=== PATIENT | female | born 1980 | race Caucasian/White ===

== ENCOUNTER 2021-08-21 20:11 | Emergency (ER) | payer BC, SELFPAY ==
[2021-08-21 20:19] VITALS: BP 190/89; PULSE 89; RESP 18; TEMP 36.7; O2SAT 100; BMI 43.6
--- NOTE | 2021-08-21 20:51 | CRLHL7_ITS ---
For Patients: As a result of the Cures Act, medical imaging exams and procedure reports are released immediately into your electronic medical record. You may view this report before your referring provider. If you have questions, please contact your health care provider. INDICATION: Swelling and pain. TECHNIQUE: Ultrasound venous duplex of lower left extremity. Compression venous exam was performed using meyers-scale, color Doppler, and spectral Doppler analysis. COMPARISON: None. FINDINGS: Sonographic imaging demonstrates the visualized left common femoral, deep femoral, femoral, popliteal, posterior tibial and greater saphenous and the contralateral right common femoral veins to be fully compressible with normal color Doppler blood flow. IMPRESSION: No evidence of a left lower extremity DVT. Dictated by Quirino Clark MD @ 08/21/2021 10:48:35 PM (Electronically Signed)
--- NOTE | 2021-08-21 20:52 | ED.GENADULT ---
HPI - General Adult General Date Seen: 08/21/21 Chief complaint: Lower Extremity Swelling Stated complaint: Leg Pain Time Seen by Provider: 08/21/21 20:44 Source: patient History of Present Illness HPI narrative: Patient is a 41-year-old woman who has been having some problems with migratory pain in her left lower extremity associated with some swelling. She saw her primary doctor today about this problem, likely felt to be musculo skeletal, but with history of recent travel and COVID, they discussed doing a venous Doppler. She says that no one has called her to schedule the Doppler yet. She says her primary doctor told her to come to the ER if she had any changes in her pain. She says the pain was kind of in the lateral part of her knee and a little bit behind her calf, and now it is more in the medial part of her thigh, so she presents to the ER. She has not had chest pain or shortness of breath. No fever. No history of prior DVT. No family history of DVT. She does not smoke. No control pills, she does have a Mirena IUD. Blood pressure noted to be high in clinic today and she was started on hydrochlorothiazide. Related Data Home Medications Medication Instructions Recorded Confirmed lisinopril 10 mg tablet 10 mg PO QDAY 08/21/21 08/21/21 prednisone 20 mg tablet 20 mg PO .PRN tab 08/21/21 08/21/21 Previous Rx's Medication Instructions Recorded hydrochlorothiazide 12.5 mg tablet 12.5 mg PO QAM #30 tab 08/21/21 ketorolac 10 mg tablet 10 mg PO TID 5 Days #15 tab 08/21/21 Allergies Allergy/AdvReac Type Severity Reaction Status Date / Time No Known Drug Allergies Allergy Verified 08/21/21 15:25 Review of Systems Status of ROS: Reports: 10 or more systems reviewed and unremarkable except as noted in History and below PFS PFS Social History Smoking Status: Never smoker Do you use any of these nicotine containing products: None Second hand tobacco smoke exposure: No How often do you have a drink containing alcohol: never How often do you have six or more drinks on one occasion: Never AUDIT-C Alcohol total score: 0 Non-prescribed substance use: denies use Exam Narrative: Exam Narrative: Vital signs as noted below. In general, an alert, well-appearing patient. Head: Normocephalic, atraumatic. Eyes: Pupils are equal reactive. Extraocular movements are full. Conjunctivae are normal. ENT: Mucous membranes are moist. Neck: Supple without lymphadenopathy. Heart: Regular rate and rhythm. No murmur or rub. Lungs: Clear bilaterally. No increased work of breathing, crackles or wheezes. Abdomen: Soft and nontender. No organomegaly. Extremities: Well perfused. Trace edema bilaterally, no significant asymmetry. No calf tenderness. No erythema or warmth. Neurologic: Patient is alert and oriented to person and place. Speech is fluent. Face is symmetric. Moves all extremities equally. Affect: Normal. Skin: Warm and dry. Well perfused. Const: Vital Signs, click to edit/add: Vital Signs - 24 hr 08/21/21 20:19 Temperature 98.0 F Pulse Rate [Right Pulse Oximeter] 89 Respiratory Rate 18 Blood Pressure [Ri ght Upper Arm] 190/89 H Pulse Oximetry 100 Course Course Hospital Course: Patient is hypertensive here, this was addressed by her primary care doctor earlier. We will go ahead and do a venous Doppler here tonight. Doppler is negative. I do not think this represents DVT. More likely muscular, does not sound radicular. No evidence of an infectious cause. management was addressed by primary care doctor earlier today. Continue current medications. Follow up with primary care as needed. Vital Signs Vital signs: Initial Vital Signs Temperature 98.0 F 08/21/21 20:19 Temperature Source Temporal Artery Scan 08/21/21 20:19 Pulse Rate 89 08/21/21 20:19 Pulse Rhythm 08/21/21 20:19 Pulse Strength 0+ Absent 08/21/21 20:19 Respiratory Rate 18 08/21/21 20:19 Blood Pressure 190/89 H 08/21/21 20:19 Blood Pressure Mean 122 08/21/21 20:19 Blood Pressure Position Sitting 08/21/21 20:19 Pulse Oximetry 100 08/21/21 20:19 Oxygen Delivery Method 08/21/21 20:19 Vital Signs Temperature 98.0 F 08/21/21 20:19 Pulse Rate 89 08/21/21 20:19 Respiratory Rate 18 08/21/21 20:19 Blood Pressure 190/89 H 08/21/21 20:19 Pulse Oximetry 100 08/21/21 20:19 Temperature 98.0 F 08/21/21 20:19 Pulse Rate 89 08/21/21 20:19 Respiratory Rate 18 08/21/21 20:19 Blood Pressure 190/89 H 08/21/21 20:19 Pulse Oximetry 100 08/21/21 20:19 Discharge Plan Discharge Clinical Impression: Left leg pain, HTN (hypertension) Patient Disposition: Home, Self-Care Condition: Stable Instructions: Leg Pain (ED) Additional Instructions: Follow-up with your primary doctor as planned. Ultrasound tonight is normal without evidence of blood clot. Continue current medications. Prescriptions: No Action lisinopril 10 mg tablet 10 mg PO QDAY 0RF prednisone 20 mg tablet 20 mg PO .PRN 0RF hydrochlorothiazide 12.5 mg tablet 12.5 mg PO QAM Qty: 30 0RF ketorolac 10 mg tablet 10 mg PO TID 5 Days Qty: 15 0RF Follow Up/Referrals: Theresa Guerrero PA-C [Primary Care Provider] - Stand Alone Forms: MyHealth Info Instructions
[2021-08-21 23:00] VITALS: BP 145/79; PULSE 85; RESP 16; TEMP 36.7; O2SAT 98
[2021-08-21 23:01] VITALS: BP 135/79; PULSE 89; RESP 16; TEMP 36.7
== END 2021-08-21 23:03 | disposition home or self-care (01) ==
PROVIDERS: Emergency Provider Emergency Medicine; PCP Physician Assistant Medical
DX: M79.662 Pain in left lower leg (principal); I10 Essential (primary) hypertension
CPT/HCPCS: 93971; 99282; 99283

== ENCOUNTER 2022-05-14 08:19 | Outpatient (CLI) | payer BC, SELFPAY | END 2022-05-14 08:20 | disposition home or self-care (01) | LOC: LKVREF 08:20 | PROVIDERS: PCP Physician Assistant Medical; Visit Provider Physician Assistant Medical | DX: Z00.00 Encounter for general adult medical examination without abnormal findings (principal); E66.9 Obesity, unspecified; I10 Essential (primary) hypertension; Z13.6 Encounter for screening for cardiovascular disorders | CPT/HCPCS: 80048; 80061; 84443 ==